=== PATIENT | female | born 1990 | race Two or more races ===

== ENCOUNTER 2017-06-28 19:16 | Emergency (ER) | payer SELFPAY ==
--- NOTE | 2017-06-28 19:44 | NUR ---
INFORMED BY ADMITTING "PT LEFT AT 1930"
== END 2017-06-28 19:45 | disposition left against medical advice (07) ==
LOC: ER 19:19
DX: Z53.21 Procedure and treatment not carried out due to patient leaving prior to being seen by health care provider (principal)

== ENCOUNTER 2020-05-26 14:19 | Emergency (ER) | payer SELFPAY ==
[~2020-05-26] VITALS: Ht 165.1 cm; Wt 74.8 kg
--- NOTE | 2020-05-26 15:12 | NUR ---
CAME IN FOR DIARRHEA SINCE YESTERDAY, VOMITING 5-6 EPISODES SINCE THIS MORNING, TO ER BED 10, HOOKED TO MONITOR, CHANGED TO HOSP GOWN, WARM BLANLET PROVIDED, PATIENT AAO x 4, BREATHING EVENA AND UNLABORED, AWAITING MD BURCIAGA
--- NOTE | 2020-05-26 15:15 | NUR ---
DR BOSS AT BEDSIDE
[2020-05-26] MEDS ORDERED: HYDROMORPHONE INJ 2 MG/ML DISP.SYRIN ONE (15:26)
[2020-05-26] MEDS ORDERED: ONDANSETRON HCL/PF 4 MG/2 ML VIAL ONE (15:26)
[2020-05-26] MEDS ORDERED: MORPHINE SULFATE INJ 2 MG/ML DISP.SYRIN IV ONE (15:30)
[2020-05-26] MEDS ORDERED: ONDANSETRON HCL/PF 4 MG/2 ML VIAL IVP ONE (15:30)
[2020-05-26] MEDS ORDERED: HYDROMORPHONE INJ 2 MG/ML DISP.SYRIN IV ONE (15:30)
[2020-05-26] MEDS ORDERED: IV NS 0.9% 1,000 ML BAG IV ONE (15:30)
[2020-05-26] MEDS ORDERED: MORPHINE SULFATE INJ 4 MG/ML DISP.SYRIN ONE (15:39)
[2020-05-26 15:43] LABS: BASOPHILS # (AUTO) 0.1 /CMM (0.0-0.2); BASOPHILS % (AUTO) 1.1 % (0.0-2.0); EOSINOPHILS % (AUTO) 1.6 % (0.0-6.0); HEMATOCRIT 37 % (33-45); HEMOGLOBIN 11.8 g/dL (11.5-14.8); LYMPHOCYTES # (AUTO) 1.7 /CMM (0.8-4.8); LYMPHOCYTES % (AUTO) 18.5 % (20.0-44.0); MEAN CORPUSCULAR HGB CONC 32 g/dl (31.0-36.0); MEAN CORPUSCULAR VOLUME 75 fL (82-100); MONOCYTES # (AUTO) 0.6 /CMM (0.1-1.30); MONOCYTES % (AUTO) 6.2 % (2.0-12.0); NEUTROPHILS # (AUTO) 6.6 /CMM (1.8-8.9); NEUTROPHILS % (AUTO) 72.6 % (43.0-81.0); PLATELET COUNT (AUTO) 283 /CMM (150-450); WHITE BLOOD COUNT (AUTO) 9.1 K/uL (4.3-11.0)
[2020-05-26 16:09] LABS: ALBUMIN 3.5 g/dL (3.4-5.0); BILIRUBIN,DIRECT 0.1 mg/dL (0.0-0.2); BILIRUBIN,TOTAL 0.2 mg/dL (0.2-1.0); CALCIUM, SERUM 9.3 mg/dL (8.5-10.1); CREATININE 0.8 mg/dL (0.6-1.3); POTASSIUM 3.5 mmol/L (3.5-5.1); TOTAL PROTEIN, SERUM 7.4 g/dL (6.4-8.2)
--- NOTE | 2020-05-26 17:15 | NUR ---
IV removed. Catheter intact and site benign. Pressure and 4x4 applied to site. No bleeding noted.Patient discharged to home in stable condition. Written and verbal after care instructions given. Patient verbalizes understanding of instruction.
[2020-05-26 17:17] VITALS: BP 111/69
== END 2020-05-26 17:17 | disposition home or self-care (01) ==
LOC: ER 14:19
DX: R11.2 Nausea with vomiting, unspecified (principal); R19.7 Diarrhea, unspecified; R10.84 Generalized abdominal pain; R53.83 Other fatigue; Z90.89 Acquired absence of other organs
CPT/HCPCS: 36415; 80048; 80076; 83690; 85025; 96361; 96374; 96375; 99284; J2270; J2405; J7030; J1170

== ENCOUNTER 2020-07-08 11:52 | Emergency (ER) | payer OTHER ==
[~2020-07-08] VITALS: Ht 165.1 cm; Wt 57.6 kg
--- NOTE | 2020-07-08 11:57 | NUR ---
BIBRA C/O R 3RD AND 4TH DIGIT LACERATION S/P CRUSH INJURY ON SLIDING DOOR. TO ER BED 11, HOOKED TO MONITOR, CHANGED TO HOSP GOWN, WARM BLANKET PROVIDED, PATIENT AAO x 4, BREATHING EVEN AND UNLABORED, AWAITING MD BURCIAGA.
--- NOTE | 2020-07-08 12:40 | NUR ---
DR BOYCE AT BEDSIDE
[2020-07-08] MEDS ORDERED: BACITRACIN ZINC OINT PACKET 1 EA PACKET TP ONE ×2 (13:00→13:06)
[2020-07-08] MEDS ORDERED: LIDOCAINE 1% INJ 50 ML MDV IJ ONE (13:00)
[2020-07-08] MEDS ORDERED: FENTANYL PF 100MCG/2ML AMPUL IV ONE (13:00)
[2020-07-08] MEDS ORDERED: TDAP [DIPH/PERTUSSIS/TET] 0.5 ML VIAL IM ONE ×2 (13:00→13:06)
[2020-07-08] MEDS ORDERED: FENTANYL PF 100MCG/2ML AMPUL ONE (13:06)
[2020-07-08] MEDS ORDERED: LIDOCAINE 2% 20 ML MDV ONE (13:06)
--- NOTE | 2020-07-08 15:21 | NUR ---
DR BOYCE AT BEDSIDE FOR SUTURING
--- NOTE | 2020-07-08 16:16 | NUR ---
DR BOYCE AT BEDSIDE FOR SUTURING
[2020-07-08] MEDS ORDERED: MORPHINE SULFATE INJ 2 MG/ML DISP.SYRIN IV ONE (16:30)
[2020-07-08] MEDS ORDERED: MORPHINE SULFATE INJ 4 MG/ML DISP.SYRIN ONE (16:47)
--- NOTE | 2020-07-08 17:36 | NUR ---
GEAR CHANGER AT BEDSIDE FOR WOUND CARE
--- NOTE | 2020-07-08 17:59 | NUR ---
IV removed. Catheter intact and site benign. Pressure and 4x4 applied to site. No bleeding noted.Patient discharged to home in stable condition. Written and verbal after care instructions given. Patient verbalizes understanding of instruction. Instructed patient not to drive
[2020-07-08 18:01] VITALS: BP 121/70
== END 2020-07-08 18:01 | disposition home or self-care (01) ==
LOC: ER 11:53
DX: S61.212A Laceration without foreign body of right middle finger without damage to nail, initial encounter (principal); S61.214A Laceration without foreign body of right ring finger without damage to nail, initial encounter; W23.0XXA Caught, crushed, jammed, or pinched between moving objects, initial encounter; Y93.89 Activity, other specified; Y92.89 Other specified places as the place of occurrence of the external cause; Y99.8 Other external cause status
CPT/HCPCS: 12042; 73130; 90471; 90715; 96374; 96375; 99285; A6403; J2270; J3010; J3490

== ENCOUNTER 2020-07-10 18:57 | Emergency (ER) | payer OTHER ==
[~2020-07-10] VITALS: Ht 165.1 cm; Wt 68.0 kg
[2020-07-10 19:22] VITALS: BP 123/79
--- NOTE | 2020-07-10 19:36 | NUR ---
YUDITH VAZQUEZ AT BEDSIDE FOR EVAL.
--- NOTE | 2020-07-10 19:51 | NUR ---
Patient discharged to home in stable condition. Written and verbal after care instructions given. Patient verbalizes understanding of instruction.
--- NOTE | 2020-07-10 19:51 | NUR ---
PRESCRIPTIONS GIVEN AND EXPLAINED TO. FOLLW-UP INSTRUCTIONS PROVIDED, PATIENT VERBALIZES UNDERSTANDING.
== END 2020-07-10 19:50 | disposition home or self-care (01) ==
LOC: ER 19:04
DX: S61.212D Laceration without foreign body of right middle finger without damage to nail, subsequent encounter (principal); S61.214D Laceration without foreign body of right ring finger without damage to nail, subsequent encounter; X58.XXXD Exposure to other specified factors, subsequent encounter

== ENCOUNTER 2021-03-13 19:21 | Emergency (ER) | payer OTHER ==
[~2021-03-13] VITALS: Ht 165.1 cm; Wt 74.8 kg
[2021-03-13 19:35] VITALS: BP 126/86
[2021-03-13] MEDS ORDERED: LIDOCAINE /MPF 1% VIAL 5 ML VIAL ONE (19:57)
[2021-03-13] MEDS ORDERED: CEFTRIAXONE 500 MG VIAL ONE (19:57)
[2021-03-13] MEDS ORDERED: DOXY100C41 PO (19:58)
[2021-03-13] MEDS ORDERED: CEFTRIAXONE 500 MG VIAL IM ONE (20:00)
== END 2021-03-13 20:20 | disposition home or self-care (01) ==
LOC: ER 19:26
DX: Z20.2 Contact with and (suspected) exposure to infections with a predominantly sexual mode of transmission (principal)
CPT/HCPCS: 87491; 87591; 96372; 99283; J0696; J3490

== ENCOUNTER 2021-03-21 18:26 | Emergency (ER) | payer OTHER ==
[~2021-03-21] VITALS: Ht 165.1 cm; Wt 74.8 kg
[~2021-03-21 18:26] MED LIST: DOXY100C41 PO
[2021-03-21 18:44] VITALS: BP 135/78
--- NOTE | 2021-03-21 19:05 | NUR ---
anthony, c/o headache started around 2pm today, 07/24 PS +Nausea. Patient a/ox4, breathing even and unlabored, no sob noted, needs attended. Kept comfortable.
--- NOTE | 2021-03-21 19:07 | NUR ---
DR. DOUGHERTY AT BEDSIDE FOR EVAL
[2021-03-21] MEDS ORDERED: AMOX500C2 PO (19:12)
[2021-03-21] MEDS ORDERED: IBUP-1955 PO (19:12)
[2021-03-21] MEDS ORDERED: IBUPROFEN 600 MG TABLET ONE (19:15)
[2021-03-21] MEDS ORDERED: IBUPROFEN 600 MG TABLET PO ONE (19:30)
== END 2021-03-21 19:54 | disposition home or self-care (01) ==
LOC: ER 18:31
DX: J01.10 Acute frontal sinusitis, unspecified (principal); J01.00 Acute maxillary sinusitis, unspecified; R51.9 Headache, unspecified; F32.9 Major depressive disorder, single episode, unspecified; F41.9 Anxiety disorder, unspecified; D64.9 Anemia, unspecified; F17.200 Nicotine dependence, unspecified, uncomplicated; Z90.89 Acquired absence of other organs; Z98.890 Other specified postprocedural states

== ENCOUNTER 2021-12-06 15:25 | Emergency (ER) | payer OTHER ==
[~2021-12-06] VITALS: Ht 165.1 cm; Wt 64.4 kg
[~2021-12-06 15:25] MED LIST changes: +AMOX500C2 PO; +DOXY-326 PO; -DOXY100C41 PO; +IBUP-1955 PO
[2021-12-06 16:27] LABS: BILIRUBIN,URINE NEGATIVE (NEGATIVE); COLOR,URINE YELLOW (YELLOW); LEUKOCYTE ESTERASE ,URINE NEGATIVE (NEGATIVE); NITRITE, URINE NEGATIVE (NEGATIVE); PROTEIN,URINE NEGATIVE (NEGATIVE); UGLUCOSE NEGATIVE (NEGATIVE); UROBILINOGEN,URINE 0.2 EU/dL (0.2)
[2021-12-06] MEDS ORDERED: ONDANSETRON HCL/PF 4 MG/2 ML VIAL ONE (16:27)
[2021-12-06] MEDS ORDERED: IV NS 0.9% 1,000 ML BAG IV ONE (16:30)
[2021-12-06] MEDS ORDERED: ONDANSETRON HCL/PF 4 MG/2 ML VIAL IVP ONE (16:30)
--- NOTE | 2021-12-06 16:30 | NUR ---
LOW ABDOMINAL PAIN /VAGINAL ITCHING AND PAIN X 3 WEEKS. PT AAOX4, VSS. RR EVEN & UNLABORED. DENIES CP, SOB, DIZZINESS, N/V AT THIS TIME. PT SEEN & EVAL'D BY TAYLOR CHIANG. 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 WILL CONT TO MONITOR.
--- NOTE | 2021-12-06 16:31 | NUR ---
ULTRASOUND AT BEDSIDE
[2021-12-06 16:41] LABS: BACTERIA,URINE Few /HPF (None Seen); SQUAMOUS EPITHELIAL CELL,UR Few /HPF (None Seen)
--- NOTE | 2021-12-06 16:50 | NUR ---
MEDICATED PER ERMD ORDER, PT BERKLEY WELL.
[2021-12-06 16:56] LABS: BASOPHILS # (AUTO) 0.1 K/uL (0.0-0.2); BASOPHILS % (AUTO) 0.9 % (0.0-2.0); EOSINOPHILS % (AUTO) 0.5 % (0.0-6.0); HEMATOCRIT 40 % (33-45); LYMPHOCYTES # (AUTO) 1.4 K/uL (0.8-4.8); LYMPHOCYTES % (AUTO) 21.1 % (20.0-44.0); MEAN CORPUSCULAR HGB CONC 33 g/dl (31.0-36.0); MEAN CORPUSCULAR VOLUME 76 fL (82-100); MONOCYTES # (AUTO) 0.4 K/uL (0.1-1.30); MONOCYTES % (AUTO) 6.8 % (2.0-12.0); NEUTROPHILS # (AUTO) 4.6 K/uL (1.8-8.9); NEUTROPHILS % (AUTO) 70.7 % (43.0-81.0); PLATELET COUNT (AUTO) 300 K/uL (150-450); RED BLOOD CELL COUNT(AUTO) 5.18 MIL/uL (4.0-5.2); WHITE BLOOD COUNT (AUTO) 6.5 K/uL (4.3-11.0)
[2021-12-06 17:56] LABS: ALBUMIN 3.6 g/dL (3.4-5.0); BILIRUBIN,DIRECT 0.1 mg/dL (0.0-0.2); POTASSIUM 4.1 mmol/L (3.5-5.1); TOTAL PROTEIN, SERUM 7.5 g/dL (6.4-8.2)
[2021-12-06 18:07] LABS: BILIRUBIN,TOTAL 0.3 mg/dL (0.2-1.0); CALCIUM, SERUM 8.9 mg/dL (8.5-10.1); CREATININE 0.9 mg/dL (0.6-1.3)
[2021-12-06 19:13] VITALS: BP 127/82
--- NOTE | 2021-12-06 19:13 | NUR ---
Patient discharged to home in stable condition. Written and verbal after care instructions given. Patient verbalizes understanding of instruction. IV removed. Catheter intact and site benign. Pressure and 4x4 applied to site. No bleeding noted.
== END 2021-12-06 19:14 | disposition home or self-care (01) ==
LOC: ER 15:26
DX: R10.31 Right lower quadrant pain (principal); R10.13 Epigastric pain; R11.0 Nausea; F32.A Depression, unspecified; F41.9 Anxiety disorder, unspecified; F17.200 Nicotine dependence, unspecified, uncomplicated; Z98.890 Other specified postprocedural states; Z90.89 Acquired absence of other organs; Z79.899 Other long term (current) drug therapy
CPT/HCPCS: 36415; 76856; 80048; 80076; 81001; 83690; 84702; 84703; 85025; 87491; 87591; 96361; 96374; 99284; J2405; J7030